=== PATIENT | female | born 1980 | race Caucasian/White ===

== ENCOUNTER 2018-02-18 14:38 | Emergency (ER) | payer MEDICAID, OTHER ==
[2018-02-18 14:51] VITALS: BMI 33.8
[2018-02-18 14:55] VITALS: BP 136/74; PULSE 78; RESP 18; TEMP 99.3; O2SAT 97
--- NOTE | 2018-02-18 15:22 | C.PDOC ---
History Of Present Illness 37 y/o healthy female comes to ed not feeling well today, feels hot from inside, face is flushed. no rash or itching. denies cough, sore throat, headache, urinary symptoms, abdominal pain, n/v/d. pt works in a school. pt got flu vax 2 weeks ago, Time Seen by Provider: 02/18/18 15:00 Chief Complaint (Nursing): Abnormal Skin Integrity History Per: Patient History/Exam Limitations: no limitations Onset/Duration Of Symptoms: Hrs Current Symptoms Are (Timing): Still Present Past Medical History Reviewed: Historical Data, Nursing Documentation, Vital Signs Vital Signs: Last Vital Signs Temp 99.3 F 02/18/18 14:54 Pulse 78 02/18/18 14:54 Resp 18 02/18/18 14:54 BP 136/74 02/18/18 14:54 Pulse Ox 97 02/18/18 14:54 - Medical History PMH: No Chronic Diseases Surgical History: No Surg Hx - [facility] Procedures INJECT/INFUSE NEC (12/07/13) Family History: States: No Known Family Hx - Social History Hx Tobacco Use: No Hx Alcohol Use: No Hx Substance Use: No - Immunization History Hx Tetanus Toxoid Vaccination: Yes Hx Influenza Vaccination: No Hx Pneumococcal Vaccination: No Review Of Systems Constitutional: Negative for: Fever, Chills Respiratory: Negative for: Cough Gastrointestinal: Negative for: Nausea, Vomiting Skin: Positive for: Other (flushing to face). Negative for: Rash Physical Exam - Physical Exam Appears: Non-toxic, No Acute Distress Skin: Warm, Dry, No Rash, Other (flushing to face, redness on face) Head: Atraumatic, Normacephalic Eye(s): bilateral: Normal Inspection Oral Mucosa: Moist Tongue: Normal Appearing, No Swelling Lips: Normal Appearing, No Swelling Throat: Normal, No Erythema, No Exudate Cardiovascular: Rhythm Regular Respiratory: Normal Breath Sounds, No Rales, No Rhonchi, No Wheezing Neurological/Psych: Oriented x3, Normal Speech, Normal Cognition ED Course And Treatment O2 Sat by Pulse Oximetry: 97 (RA) Pulse Ox Interpretation: Normal Medical Decision Making Medical Decision Making: pt with flushed face, possible temperature, no specific complaints; not . will d/.c home with rest, check temperature and f/u pmd. Disposition Counseled Patient/Family Regarding: Studies Performed, Diagnosis, Need For Followup - Disposition Referrals: Vick Main MD [Medical Doctor] - Disposition: HOME/ ROUTINE Disposition Time: 15:40 Condition: GOOD Additional Instructions: Please check temperature at home, Tylenol or Motrin for fever, Follow up with Dr Main in 1-2 days. Drink increased fluids, increased rest. RTeturn to ER for any worse symptoms,. 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 - Scribe Statement The provider has reviewed the documentation as recorded by the Amandaibasael Umaña All medical record entries made by the Amandaibasael were at my direction and personally dictated by me. I have reviewed the chart and agree that the record accurately reflects my personal performance of the history, physical exam, medical decision making, and the department course for this patient. I have also personally directed, reviewed, and agree with the discharge instructions and disposition.
== END 2018-02-18 15:49 | disposition home or self-care (01) ==
LOC: C.ER 14:38
DX: B34.9 Viral infection, unspecified (principal)